=== PATIENT | male | born 1955 | race Caucasian/White ===

== ENCOUNTER → 2017-09-02 | Day surgery (SDC) | payer BC ==
[~2017-09-02] MED LIST: ALPRAZOLAM1 MG PO; CYCLOBENZAPRINE10 MG PO; FENOFIBRATE145 MG PO; FENTANYL CITRATE/PF 100MCG/2 ML INJ ONE; HEPARIN 25,000 UNIT/D5W 250ML 250 ML IV SCH; HEPARIN 25,000 UNIT/D5W 250ML 250 ML IV STA; HEPARIN SOD/SOD CHLORIDE 2,000 ML ONE; IOPAMIDOL 370 MG/ML 200 ML INFUS..BTL INJ ONE; LIDOCAINE HCL 2% LOCAL 20 ML VIAL ONE; LISINOPRIL20 MG PO; MIDAZOLAM HCL 2 MG/2 ML VIAL ONE; SODIUM CHLORIDE 0.9% 1000ML 1,000 ML ONE
[2017-09-02 12:18] LABS: BASOPHILS % 0.5 % (0.0-1.0); EOSINOPHILS # (AUTO) 0.4 (0.0-0.4); EOSINOPHILS % 4.8 % (0.0-6.0); HEMATOCRIT 40.5 % (38.2-49.6); HEMOGLOBIN 13.8 g/dL (14.0-18.0); LYMPHOCYTES # (AUTO) 2.8 (1.0-3.2); LYMPHOCYTES % 36.5 % (18.0-39.1); MEAN CORPUSCULAR HEMOGLOBIN 28.6 pg (28-32); MEAN CORPUSCULAR HGB CONC 34.1 g/dL (31-35); MEAN CORPUSCULAR VOLUME 83.9 fL (81-99); MONOCYTES # (AUTO) 0.9 (0.2-0.8); MONOCYTES % 11.8 % (4.4-11.3); NEUTROPHILS # (AUTO) 3.5 (2.1-6.9); PLATELET COUNT 250 x10e3/uL (140-360); RED BLOOD COUNT 4.83 x10e6/uL (4.3-5.7); RED CELL DISTRIBUTION WIDTH 12.5 % (11.7-14.4)
[2017-09-02 12:36] LABS: BLOOD UREA NITROGEN 12 mg/dL (7-26); BUN/CREATININE RATIO 13 (6-25); CALCIUM 8.9 mg/dL (8.4-10.2); CARBON DIOXIDE 27 mmol/L (22-29); CHLORIDE 102 mmol/L (98-107); CHOL/HDL RATIO 4.8 (3.9-4.7); CHOLESTEROL 193 MD/DL (0-199); CREATININE, SERUM 0.93 mg/dL (0.72-1.25); EST GLOMERULAR FILTRATION RATE > 60 ML/MIN (60-); GLUCOSE 113 mg/dL (74-118); HDL CHOLESTEROL 40 MG/DL (40-60); LDL CHOLESTEROL 127 MG/DL (60-130); SODIUM 138 mmol/L (136-145); TRIGLYCERIDES 130 MG/DL (0-149)
--- NOTE | 2017-09-02 13:53 | Operative Report ---
DATE OF PROCEDURE: September 02, 2017 OPERATION PERFORMED: Left heart catheterization. INDICATIONS: Acute coronary syndrome. COMPLICATIONS: None. ANESTHESIA: Versed, fentanyl and lidocaine. TECHNIQUE: The right groin was draped and prepped in the usual fashion. The area was anesthetized with lidocaine. Standard Seldinger technique was used to place a 6-Romansh sheath into the right femoral artery without difficulty. A JL4 catheter was used to selectively engage the left coronary artery. A 3DRC catheter was used to selectively engage the right coronary artery. A pigtail catheter was used to perform a left ventriculogram. An Angio-Seal device was used for closure. There were no complications. Results are as follows: 1. There was a critical 90% stenosis in the left main trunk. 2. There was a large left anterior descending artery which gave rise to a medium-sized diagonal branch. There was some 50% cylindrical narrowing in the midportion of the left anterior descending artery. 3. There was a medium-sized elim ira circumflex artery which gave rise to a large bifurcating obtuse marginal branch. There was minimal disease in the circumflex system. 4. There was a large dominant right coronary artery with minimal disease. 5. There was normal left ventricular size and function with an ejection fraction of 55% to 60%. CONCLUSION: The patient has a critical stenosis in the left main trunk and will require coronary artery bypass grafting. Arrangements are being made for the patient to be transferred on an emergent basis for surgery tomorrow. Job#: [id number] EV cc:WILLIAM TREJO M.D.
[2017-09-02 14:04] LABS: INR 0.85
[2017-09-02 14:05] LABS: PARTIAL THROMBOPLASTIN TIME 28.3 seconds (23.8-35.5)
== END | disposition short-term general hospital (02) ==
LOC: CATH LAB 11:38
PROVIDERS: ATTEND Internal Medicine Cardiovascular Disease
DX: I25.10 Atherosclerotic heart disease of native coronary artery without angina pectoris (principal); R94.39 Abnormal result of other cardiovascular function study; I10 Essential (primary) hypertension
CPT/HCPCS: 36415; 77002; 80048; 80061; 85025; 85610; 85730; 93458; C1769; J2001; J2250; J7030; Q9967; 36140; 93452